=== PATIENT | female | born 1955 | race Caucasian/White ===

== ENCOUNTER 2018-07-11 12:42 | Inpatient (IN) | payer SELFPAY ==
[2018-07-11] MEDS ORDERED: HYDROMORPHONE HCL 0.5 MG/0.5 ML INJ ONE ×3 (13:25→15:31)
[2018-07-11] MEDS ORDERED: ONDANSETRON 4 MG/2 ML VIAL ONE ×2 (13:28→15:22)
[2018-07-11 13:50] LABS: Absolute Lymphocytes (CBC) 1.8 K/uL (0.7-4.9); Absolute Monocytes 0.6 K/uL (0.1-1.3); Absolute Neutrophil 4.6 K/uL (1.8-8.0); Basophils % 0.8 % (0-1.3); Eosinophils % 3.4 % (0-4.4); Hematocrit 42.6 % (36.0-45.0); Lymphocytes % 24.4 % (15.3-44.8); MCH 30.8 pg (27.0-35.0); MCV 87.7 fL (80-100); MPV 7.7 fL (7.6-11.3); Monocytes % 8.1 % (3.3-12.3); RBC Red Blood Cell Count 4.86 M/uL (3.86-4.86)
[2018-07-11 14:41] LABS: Potassium 3.9 mmol/L (3.5-5.1)
[2018-07-11] MEDS ORDERED: PROMETHAZINE 25 MG/ML VIAL ONE (15:35)
--- NOTE | 2018-07-11 16:00 | RAD REPORT ---
EXAM DESCRIPTION: CT - Ankle Right Wo Con - 07/11/2018 3:40 pm CLINICAL HISTORY: Fall, ankle pain, abnormal plain films COMPARISON: Right ankle July 11 TECHNIQUE: Axial 2 millimeter thick images of the right ankle obtained with sagittal and coronal ref ormatted images generated and reviewed. The CT scan was performed using dose optimization techniques as appropriate to a performed exam incl uding one or more of the following: Automated exposure control, adjustment of the mA and/or kV accord ing to patient size (this includes techniques or standardized protocols for targeted exams where dose is matched to indication/reason for exam) and use of iterative reconstruction technique. FINDINGS: There is a transverse fracture of the distal fibula with no significant distraction or ang ulation deformity. No pathologic component. Posterior malleolus of the tibia is intact. There is an a ccessory ossicle posterior to the talus. No gross fracture deformity of the medial malleolus. There a re 2 small 1-2 mm sized bone densities near the tip of the fibula that may be small bone avulsions. L igamentous or other soft tissue injury is certainly possible. Ankle mortise is normal. The soft tissu e swelling is present along the lateral and anterior aspect of the ankle joint. Plantar and Achilles spurs are present. No acute calcaneus finding. No air or foreign body in the soft tissues. The foot is flexed inward and rotated in this imaging plane. Foot is only partially imaged on this st udy. No gross fracture deformity of a tarsal bone. IMPRESSION: Transverse fracture of the distal fibula without distraction or angulation deformity. Punctate bone densities 1-2 mm in size inferior tip of the medial malleolus are potentially small bon e avulsions. No gross fracture deformity of the distal tibia.
--- NOTE | 2018-07-11 16:07 | EDPHYS ---
Physician Documentation [facility] Name: Ami Kelly Age: 63 yrs Sex: Female : 1955 Arrival Date: 07/11/2018 Time: 12:46 Bed 24 Private MD: ED Physician Chapo Blanco HPI: 07/11 13:25 This 63 yrs old Female presents to ER via EMS with complaints of Wrist Pain, Ankle cp Injury. 13:25 Details of fall: The patient fell from an upright position. cp 13:25 Onset: The symptoms/episode began/occurred just prior to arrival. Associated injuries: cp The patient sustained right wrist, decreased range of motion, painful injury, swelling, right ankle, decreased range of motion, painful injury, swelling, left knee, pain. Historical: - Allergies: 12:56 No Known Allergies; ss - PMHx: 16:24 GERD; sv - PSHx: 16:24 Tonsillectomy; sv - Immunization history:: Adult Immunizations up to date. - Social history:: Smoking status: Patient/guardian denies using tobacco. - Ebola Screening: : Patient denies exposure to infectious person Patient denies travel to an Ebola-affected area in the 21 days before illness onset. ROS: 13:30 Constitutional: Negative for body aches, chills, fever, poor PO intake. cp 13:30 Eyes: Negative for injury, pain, redness, and discharge. cp 13:30 ENT: Negative for drainage from ear(s), ear pain, sore throat, difficulty swallowing, difficulty handling secretions. 13:30 Cardiovascular: Negative for chest pain, edema, palpitations. 13:30 Respiratory: Negative for cough, shortness of breath, wheezing. 13:30 Abdomen/GI: Negative for abdominal pain, nausea, vomiting, and diarrhea. 13:30 MS/extremity: Positive for injury or acute deformity, decreased range of motion, pain, of the right ankle and right wrist, Negative for paresthesias. 13:30 Skin: Negative for cellulitis, rash. 13:30 Neuro: Negative for altered mental status, headache, loss of consciousness, weakness. 13:30 All other systems are negative. Exam: 13:38 Constitutional: The patient appears in no acute distress, alert, awake, cp non-diaphoretic, non-toxic, well developed, well nourished, obese. 13:38 Head/Face: Normocephalic, atraumatic. cp 13:38 Eyes: Periorbital structures: appear normal, Pupils: equal, round, and reactive to light and accomodation, Extraocular movements: intact throughout, Conjunctiva: normal, no exudate, no injection, Sclera: no appreciated abnormality, Lids and lashes: appear normal, bilaterally. 13:38 ENT: External ear(s): are unremarkable, Ear canal(s): are normal, clear, TM's: bulging, is not appreciated, bilaterally, dullness, bilaterally, erythema, is not appreciated, bilaterally, Nose: is normal, Mouth: Lips: moist, Oral mucosa: pink and intact, moist, Posterior pharynx: is normal, airway is patent, no erythema, no exudate. 13:38 Neck: C-spine: vertebral tenderness, is not appreciated, crepitus, is not appreciated, ROM/movement: is normal, is supple, without pain, no range of motions limitations, no nuchal rigidity. 13:40 Chest/axilla: Inspection: normal, Palpation: is normal, no crepitus, no tenderness. cp 13:40 Cardiovascular: Rate: normal, Rhythm: regular, Pulses: Pulses are 2+ in right radial cp artery, right dorsalis pedis artery, left radial artery and left dorsalis pedis artery. Edema: is not appreciated, JVD: is not appreciated. 13:40 Respiratory: the patient does not display signs of respiratory distress, Respirations: normal, no use of accessory muscles, no retractions, no splinting, no tachypnea, labored breathing, is not present, Breath sounds: are clear throughout, no decreased breath sounds, no stridor, no wheezing. 13:40 Abdomen/GI: Inspection: obese Bowel sounds: active, all quadrants, Palpation: abdomen is soft and non-tender, in all quadrants. 13:40 Back: vertebral tenderness, is not appreciated. 13:40 Musculoskeletal/extremity: Extremities: grossly normal except: noted in the right wrist and right ankle: decreased ROM, deformity, pain, swelling, tenderness, noted in the left knee: pain, no evidence of decreased ROM, deformity. 13:40 Skin: cellulitis, is not appreciated, no rash present. 13:40 Neuro: Orientation: to person, place \T\ time. Mentation: is normal, Sensation: is normal. Vital Signs: 12:56 BP 97 / 50; Pulse 82; Resp 18; Pulse Ox 97% on R/A; Weight 97.98 kg; Height 5 ft. 2 in. ss (157.48 cm); Pain 10/10; 13:12 BP 122 / 68; Pulse 74; Resp 20; Pulse Ox 97% ; sv 14:00 BP 133 / 101; Pulse 75; Resp 18; Pulse Ox 96% on 2 lpm NC; sv 15:00 BP 135 / 59; Pulse 75; Resp 20; Pulse Ox 96% on 2 lpm NC; sv 16:32 BP 100 / 82; Pulse 79; Resp 18; Pulse Ox 97% on 2 lpm NC; sv 16:57 BP 112 / 69; Pulse 77; Resp 18; Pulse Ox 99% on 2 lpm NC; sv 12:56 Body Mass Index 39.51 (97.98 kg, 157.48 cm) Procedures: 17:25 Splinting: Splint applied to right wrist using Orthoglass splint, sugar tong type. cp applied by tech. Examined by me, post splint application: neurovascular intact, Patient tolerated well. 17:25 Splinting: Splint applied to right ankle using Orthoglass splint, posterior lower leg cp and stirrup type. applied by tech. Examined by me, post splint application: neurovascular intact, Patient tolerated well. MDM: 12:53 Patient medically screened. cp 15:23 Physician consultation: Rodriguez Sam MD was called at 15:23, was contacted at 15:23, cp regarding consult, patient's condition, would like admission per Dr. Julio Mcmullen MD. 15:25 Data reviewed: vital signs, nurses notes, lab test result(s), radiologic studies, plain cp films, and as a result, I will admit patient. 15:25 Test interpretation: by ED physician or midlevel provider: plain radiologic studies. cp Counseling: I had a detailed discussion with the patient and/or guardian regarding: the historical points, exam findings, and any diagnostic results supporting the discharge/admit diagnosis, lab results, radiology results. Response to treatment: the patient's symptoms have mildly improved after treatment. 07/11 13:21 Order name: Basic Metabolic Panel; Complete Time: 15:15 cp 07/11 15:15 Interpretation: Normal except: CL 108; GLUC 115; GFR 56. cp 07/11 13:21 Order name: CBC with Diff; Complete Time: 14:24 cp 07/11 14:24 Interpretation: Reviewed. cp 07/11 13:21 Order name: Type And Screen cp 07/11 13:21 Order name: PT-INR cp 07/11 13:21 Order name: Ptt, Activated cp 07/11 13:21 Order name: XRAY Ankle RIGHT 3 view; Complete Time: 17:25 cp 07/11 14:10 Order name: Wrist Right 2 View; Complete Time: 17:25 EDMS 07/11 14:10 Order name: Knee Left 2 View; Complete Time: 17:25 EDMS 07/11 15:03 Order name: Ankle Right Wo Con; Complete Time: 17:25 EDMS 07/11 17:26 Interpretation: Report reviewed. cp 07/11 13:21 Order name: IV; Complete Time: 13:32 cp 07/11 13:21 Order name: Labs collected and sent; Complete Time: 13:32 cp 07/11 14:24 Order name: Splint: right sugar tong; Complete Time: 16:22 cp 07/11 14:52 Order name: EKG; Complete Time: 14:53 cp 07/11 14:52 Order name: EKG - Nurse/Tech; Complete Time: 17:28 cp 07/11 16:06 Order name: CONS Physician Consult; Complete Time: 17:28 EDMS Administered Medications: 13:27 Drug: Zofran 4 mg Route: IVP; Site: left forearm; sv 13:45 Follow up: Response: No adverse reaction sv 13:29 Drug: Dilaudid 0.5 mg Route: IVP; Site: left forearm; sv 13:45 Follow up: Response: No adverse reaction sv 14:14 Drug: Dilaudid 0.5 mg Route: IVP; Site: left forearm; sv 14:30 Follow up: Response: No adverse reaction sv 15:16 Drug: Zofran 4 mg Route: IVP; Site: left forearm; sv 15:31 Follow up: Response: No adverse reaction; No change in condition sv 15:17 CANCELLED (Duplicate Order): Zofran 4 mg PO once sv 15:30 Drug: Phenergan 12.5 mg Route: IVP; Site: left forearm; sv 16:50 Drug: Dilaudid 0.5 mg Route: IVP; Site: left forearm; sv 17:25 Follow up: Response: No adverse reaction sv 17:28 Not Given (not needed): NS 0.9% 1000 ml IV at 100 ml/hr continuous sv 17:29 Not Given (not needed): NS 0.9% 500 ml IV at bolus once sv 17:29 Not Given (not needed): NS 0.9% 500 ml IV at bolus once sv Disposition: 07/11/18 16:00 Hospitalization ordered by Julio Mcmullen for Observation. Preliminary diagnosis are Intractable Pain, Right distal radius fracture, Right ankle fracture. - Bed requested for Telemetry/MedSurg (observation). - Status is Observation. sv - Condition is Stable. - Problem is new. - Symptoms have improved. UTI on Admission? No Addendum: 07/14/2018 08:12 Co-signature as Attending Physician, Chapo Blanco MD I agree with the assessment and c san plan of care. Signatures: Dispatcher [employer] EDWA Allison Alvarez RN RN sv Woody, Diana, RN RN dw Anderson, Corey, MD MD cha Smirch, Shelby, RN RN ss Page, Corey, PA PA cp Corrections: (The following items were deleted from the chart) 07/11 14:10 13:21 Wrist Right 3 View+RAD.RAD.BRZ ordered. EDWA EDMS 14:10 13:21 Knee Left 3 View+RAD.RAD.BRZ ordered. EDWA EDMS 14:44 13:21 Creatinine for Radiology+C.LAB.BRZ ordered. EDWA EDMS 15:17 14:56 Zofran 4 mg PO once ordered. cp sv 16:31 16:00 Hospitalization Ordered by Julio Mcmullen MD for Observation. Preliminary diagnosis dw is Intractable Pain; Right distal radius fracture; Right ankle fracture. Bed requested for Telemetry/MedSurg (observation). Status is Observation. Condition is Stable. Problem is new. Symptoms have improved. UTI on Admission? No. cp 17:37 16:31 07/11/2018 16:00 Hospitalization Ordered by Julio Mcmullen MD for Observation. sv Preliminary diagnosis is Intractable Pain; Right distal radius fracture; Right ankle fracture. Bed requested for Telemetry/MedSurg (observation). Status is Observation. Condition is Stable. Problem is new. Symptoms have improved. UTI on Admission? No. dw
--- NOTE | 2018-07-11 16:07 | ER ---
Nurse's Notes [facility] Name: Ami Kelly Age: 63 yrs Sex: Female : 1955 Arrival Date: 07/11/2018 Time: 12:46 Bed 24 Private MD: Diagnosis: Intractable Pain;Right distal radius fracture;Right ankle fracture Presentation: 07/11 12:52 Presenting complaint: EMS states: R wrist, R ankle and L knee pain that [place]. Denies LOC and or neck pain. Transition of care: patient was not received from another setting of care. Onset of symptoms was July 11, 2018. Risk Assessment: Do you want to hurt yourself or someone else? Patient reports no desire to harm self or others. Initial Sepsis Screen: Does the patient meet any 2 criteria? No. Patient's initial sepsis screen is negative. Does the patient have a suspected source of infection? No. Patient's initial sepsis screen is negative. Care prior to arrival: None. 12:52 Method Of Arrival: EMS: [facility] ss 12:52 Acuity: FELICIA 3 ss Historical: - Allergies: 12:56 No Known Allergies; ss - PMHx: 16:24 GERD; sv - PSHx: 16:24 Tonsillectomy; sv - Immunization history:: Adult Immunizations up to date. - Social history:: Smoking status: Patient/guardian denies using tobacco. - Ebola Screening: : Patient denies exposure to infectious person Patient denies travel to an Ebola-affected area in the 21 days before illness onset. Screenin:12 Abuse screen: Denies threats or abuse. Denies injuries from another. Nutritional sv screening: No deficits noted. Tuberculosis screening: No symptoms or risk factors identified. Fall Risk No fall in past 12 months (0 pts). No secondary diagnosis (0 pts). No IV (0 pts). Ambulatory Aid- None/Bed Rest/Nurse Assist (0 pts). Gait- Impaired (20 pts.). Mental Status- Oriented to own ability (0 pts). Total Malone Fall Scale indicates No Risk (0-24 pts). Assessment: 13:00 General: Appears distressed, uncomfortable, obese, well developed, Behavior is sv cooperative, anxious, crying. Pain: Complains of pain in right arm and right leg Pain currently is 10 out of 10 on a pain scale. Pain began 1 hour ago. Is continuous, Aggravated by increased activity, repositioning. Pain: Noted to be crying, grimacing, moaning, resistant to movement. Neuro: Level of Consciousness is awake, alert, obeys commands, Oriented to person, place, time, situation, in right leg(s) decreased ROM. Cardiovascular: Capillary refill < 3 seconds is brisk in right toes Patient's skin is warm and dry. Respiratory: Respiratory effort is even, unlabored, Respiratory pattern is regular, symmetrical. Derm: Skin is normal. Musculoskeletal: Range of motion: limited in right wrist and right ankle. 13:11 Reassessment: Informed Chapo CARR that pt and spouse are requesting pain medication. sv 13:27 Reassessment: Patient appears in no apparent distress at this time. No changes from sv previously documented assessment. Patient and/or family updated on plan of care and expected duration. Pain level reassessed. Patient is alert, oriented x 3, equal unlabored respirations, skin warm/dry/pink. 14:12 Reassessment: Patient appears in no apparent distress at this time. No changes from sv previously documented assessment. Patient and/or family updated on plan of care and expected duration. Pain level reassessed. Patient is alert, oriented x 3, equal unlabored respirations, skin warm/dry/pink. Patient states symptoms have not improved. 15:10 Reassessment: Spouse denied having recollect of labs done, stated to medical laboratory manager he sv doesn't think it was necessary. 15:14 Reassessment: Patient appears in no apparent distress at this time. No changes from sv previously documented assessment. Patient and/or family updated on plan of care and expected duration. Pain level reassessed. Patient is alert, oriented x 3, equal unlabored respirations, skin warm/dry/pink. Patient states symptoms have not improved. GI: Reports nausea. 15:28 Reassessment: Patient appears in no apparent distress at this time. No changes from sv previously documented assessment. Patient states symptoms have not improved. GI: Reports nausea. 16:32 Reassessment: Patient appears in no apparent distress at this time. Patient and/or sv family updated on plan of care and expected duration. Pain level reassessed. Patient is alert, oriented x 3, equal unlabored respirations, skin warm/dry/pink. 16:58 Reassessment: Patient appears in no apparent distress at this time. Patient and/or sv family updated on plan of care and expected duration. Pain level reassessed. Patient is alert, oriented x 3, equal unlabored respirations, skin warm/dry/pink. Cardiovascular: Capillary refill < 3 seconds is brisk in right toes Patient's skin is warm and dry. 17:00 Reassessment: Kay Rn to call back for report. sv 17:35 Reassessment: Patient appears in no apparent distress at this time. Patient and/or sv family updated on plan of care and expected duration. Pain level reassessed. Patient is alert, oriented x 3, equal unlabored respirations, skin warm/dry/pink. Patient states symptoms have improved. Vital Signs: 12:56 BP 97 / 50; Pulse 82; Resp 18; Pulse Ox 97% on R/A; Weight 97.98 kg; Height 5 ft. 2 in. ss (157.48 cm); Pain 10/10; 13:12 BP 122 / 68; Pulse 74; Resp 20; Pulse Ox 97% ; sv 14:00 BP 133 / 101; Pulse 75; Resp 18; Pulse Ox 96% on 2 lpm NC; sv 15:00 BP 135 / 59; Pulse 75; Resp 20; Pulse Ox 96% on 2 lpm NC; sv 16:32 BP 100 / 82; Pulse 79; Resp 18; Pulse Ox 97% on 2 lpm NC; sv 16:57 BP 112 / 69; Pulse 77; Resp 18; Pulse Ox 99% on 2 lpm NC; sv 12:56 Body Mass Index 39.51 (97.98 kg, 157.48 cm) ED Course: 12:46 Patient arrived in ED. ss 12:52 Allison Alvarez, DIANN is Primary Nurse. sv 12:53 Chapo Wilkerson PA is PHCP. cp 12:53 Chapo Blanco MD is Attending Physician. cp 12:56 Triage completed. ss 12:56 Arm band placed on right wrist. ss 13:00 Patient has correct armband on for positive identification. Placed in gown. Bed in low sv position. Side rails up X2. Adult w/ patient. Pulse ox on. NIBP on. Door closed. Warm blanket given. Head of bed elevated. Wet clothes taken off of the pt and warm blankets placed on.. 13:25 Initial lab(s) drawn, by me, sent to lab. Inserted saline lock: 20 gauge in left sv forearm, using aseptic technique. Blood collected. Flushed left forearm with 5 ml normal saline. 14:10 X-ray completed. Portable x-ray completed in exam room. Patient tolerated procedure mh1 poorly. Note: due to patients pain level, best images available as 2 views. 14:12 XRAY Ankle RIGHT 3 view In Process Unspecified. EDMS 14:12 Wrist Right 2 View In Process Unspecified. EDMS 14:12 Knee Left 2 View In Process Unspecified. EDMS 15:20 Orthoglass splint: Sugar tong splint applied on right arm. Sling applied to right arm. sv 15:40 Ankle Right Wo Con In Process Unspecified. EDMS 15:58 Julio Mcmullen MD is Hospitalizing Provider. cp 16:57 Orthoglass splint: Posterior short lleg splint applied on right leg. stirrup splint sv applied on right leg. 16:59 No provider procedures requiring assistance completed. Patient admitted, IV remains in sv place. intact. Administered Medications: 13:27 Drug: Zofran 4 mg Route: IVP; Site: left forearm; sv 13:45 Follow up: Response: No adverse reaction sv 13:29 Drug: Dilaudid 0.5 mg Route: IVP; Site: left forearm; sv 13:45 Follow up: Response: No adverse reaction sv 14:14 Drug: Dilaudid 0.5 mg Route: IVP; Site: left forearm; sv 14:30 Follow up: Response: No adverse reaction sv 15:16 Drug: Zofran 4 mg Route: IVP; Site: left forearm; sv 15:31 Follow up: Response: No adverse reaction; No change in condition sv 15:17 CANCELLED (Duplicate Order): Zofran 4 mg PO once sv 15:30 Drug: Phenergan 12.5 mg Route: IVP; Site: left forearm; sv 16:50 Drug: Dilaudid 0.5 mg Route: IVP; Site: left forearm; sv 17:25 Follow up: Response: No adverse reaction sv 17:28 Not Given (not needed): NS 0.9% 1000 ml IV at 100 ml/hr continuous sv 17:29 Not Given (not needed): NS 0.9% 500 ml IV at bolus once sv 17:29 Not Given (not needed): NS 0.9% 500 ml IV at bolus once sv Outcome: 16:00 Decision to Hospitalize by Provider. cp 17:29 Admitted to Med/surg accompanied by tech, family with patient, via stretcher, room 212, sv with oxygen, with chart, Report called to Kay TIDWELL 17:29 Condition: stable 17:29 Instructed on the need for admit. 17:37 Patient left the ED. sv Signatures: Dispatcher [employer] EDMS Allison Alvarez RN RN Jo Velasco 1 Mily Meng RN RN ss Chapo Wilkerson, LILLY PA cp Corrections: (The following items were deleted from the chart) 16:57 16:32 BP 100 / 82; Pulse 79bpm; Resp 18bpm; Pulse Ox 97% 2 lpm Nasal Cannula; sv sv 16:58 13:00 Cardiovascular: Capillary refill < 3 seconds is brisk in left toes Patient's skin sv is warm and dry. sv
--- NOTE | 2018-07-11 16:16 | RAD REPORT ---
EXAM DESCRIPTION: RAD - Wrist Right 2 View - 07/11/2018 2:12 pm CLINICAL HISTORY: Fall, wrist pain COMPARISON: None. TECHNIQUE: AP and oblique view of the wrist obtained. FINDINGS: Positioning was not optimal. There is a comminuted fracture involving the distal radius fr om distal shaft to the articular surface. Approximately 2 mm of distraction seen along the main obliq ue fracture plane from diaphyseal metaphyseal junction to the articular surface near the ulna. No uln a fracture confirmed. Dorsal or ventral angulation component cannot be assessed from these views. No acute carpal bone finding. IMPRESSION: Limited imaging showing comminuted distal radius fracture. Distraction is minimal. Dorsa l or ventral angulation components cannot be assessed.
--- NOTE | 2018-07-11 16:18 | RAD REPORT ---
EXAM DESCRIPTION: RAD - Ankle Right 3 View - 07/11/2018 2:12 pm CLINICAL HISTORY: Fall, ankle pain COMPARISON: None. FINDINGS: Transverse fracture of the distal fibula is present near the tibiotalar joint line. Minima l 1- 2 mm of distraction evident. No angulation deformity. Ankle mortise is normal. No distal tibia f racture identifiable. Lateral soft tissue swelling is present. Tarsal bone assessment is limited. No air or foreign body in the soft tissues. IMPRESSION: Transverse fracture of the distal fibula with minimal distraction and no angulation.
--- NOTE | 2018-07-11 17:15 | RAD REPORT ---
EXAM DESCRIPTION: RAD - Knee Left 2 View - 07/11/2018 2:12 pm CLINICAL HISTORY: Fall, knee pain COMPARISON: None. FINDINGS: Portable AP and cross-table lateral views obtained. Lateral view was obtained in approxima tely 120 degrees flexion. No fracture, dislocation or periosteal reaction.No joint effusion seen. No joint space narrowing. No soft tissue abnormality. IMPRESSION: No fracture or acute bone or joint finding identifiable.
[2018-07-11] MEDS ORDERED: HYDROMORPHONE HCL 1 MG/ML INJ IV PRN (17:31)
[2018-07-11] MEDS ORDERED: ACETAMINOPHEN 500 MG TAB PO PRN (17:31)
[2018-07-11] MEDS: ENOXAPARIN 40 MG/0.4 ML SQ SCH (18:41)
[2018-07-11] MEDS: HYDROCODONE/APAP 10/325 TAB PO PRN (18:41)
[2018-07-11] MEDS: ONDANSETRON 4 MG/2 ML VIAL IV PRN (20:04)
[2018-07-11] MEDS ORDERED: CYCLOBENZAPRINE 10 MG TAB PO PRN (21:03)
--- NOTE | 2018-07-11 21:52 | P.HP ---
Certification for Inpatient Patient admitted to: Observation With expected LOS: <2 Midnights Practitioner: I am a practitioner with admitting privileges, knowledge of patient current condition, hospital course, and medical plan of care. Services: Services provided to patient in accordance with Admission requirements found in Title 42 Section 412.3 of the Code of Federal Regulations Patient History Date of Service: 07/11/18 Reason for admission: Mechanical fall History of Present Illness: This is a 63 yr old female with a hx of GERD [place] for right wrist, knee and ankle pain. States she was on vacation with her family at the [place], she was running with her grandkids where she had a fall and tried to break her fall with her right hand. She continued to have pain and came into the ER. In the ER, she was found to have a fracture of the distal fibula and distal radial fracture. At the time of my exam, she was AAOx3, in mod distress due to pain. Allergies No Known Allergies Allergy (Verified 07/11/18 17:23) Home Medications: NK [No Home Meds] 07/11/18 - Past Medical/Surgical History -: colitis -: fracture both ankles no surgery 2006 -: tonsillectomy - Social History Smoking Status: Never smoker Alcohol use: No CD- Drugs: No Caffeine use: Yes Place of Residence: Home Review of Systems Unremarkable Physical Examination - Vital Signs Temperature: 97.0 F Blood Pressure: 125/58 Pulse: 73 Respirations: 16 Pulse Ox (%): 98 - Physical Exam General: Alert, Oriented x3, Moderate distress HEENT: Atraumatic, PERRLA, Mucous membr. moist/pink, EOMI, Sclerae nonicteric Neck: Supple, 2+ carotid pulse no bruit, No LAD, Without JVD or thyroid abnormality Respiratory: Clear to auscultation bilaterally, Normal air movement Cardiovascular: Regular rate/rhythm, Normal S1 S2 Gastrointestinal: Normal bowel sounds, No tenderness Musculoskeletal: No tenderness, Other (Sling inn place on left upper extremity) Integumentary: No rashes Neurological: Normal gait, Normal speech, Normal strength at 5/5 x4 extr, Normal tone, Normal affect Lymphatics: No axilla or inguinal lymphadenopathy - Studies Laboratory Data (last 24 hrs) 07/11/18 14:10: Creatinine Cancelled 07/11/18 14:10: Sodium 143, Potassium 3.9, BUN 13, Creatinine 1.00, Glucose 115 H 07/11/18 13:36: WBC 7.3, Hgb 15.0, Hct 42.6, Plt Count 253 Assessment and Plan - Plan Right ankle transverse fracture Right wrist radial fracture GERD Orthopedic surgery consult, Dr. Sam IV pain control Zofran for nausea, as needed DVT prophylaxis: Lovenox GI Prophylaxis: Protonix Diet: Regular Dispo: Pending ortho surgery recommendations. - Advance Directives Does patient have a Living Will: No Does patient have a Durable POA for Healthcare: No
[2018-07-12] MEDS: HYDROCODONE/APAP 10/325 TAB PO PRN ×3 (00:06→17:16)
[2018-07-12] MEDS: NA CHLORIDE 0.9% 1,000 ML IV SCH ×3 (00:17→14:50)
[2018-07-12] MEDS ORDERED: PIPER/TAZO/NS 3.375gm 0 GM/0 ML BAG ONE (05:37)
[2018-07-12 05:42] LABS: Absolute Lymphocytes (CBC) 1.4 K/uL (0.7-4.9); Absolute Monocytes 0.5 K/uL (0.1-1.3); Absolute Neutrophil 5.8 K/uL (1.8-8.0); Basophils % 0.2 % (0-1.3); Eosinophils % 0.1 % (0-4.4); Hematocrit 42.6 % (36.0-45.0); Lymphocytes % 18.3 % (15.3-44.8); MCH 30.4 pg (27.0-35.0); MCV 88.6 fL (80-100); MPV 7.6 fL (7.6-11.3); Monocytes % 5.9 % (3.3-12.3); RBC Red Blood Cell Count 4.81 M/uL (3.86-4.86)
[2018-07-12 05:50] LABS: Albumin 3.5 g/dL (3.4-5.0); Bilirubin Total 0.4 mg/dL (0.2-1.0); Potassium 4.1 mmol/L (3.5-5.1); Protein, Total 6.5 g/dL (6.4-8.2)
[2018-07-12 06:07] LABS: Protime INR 1.06
[2018-07-12] MEDS: PANTOPRAZOLE 40MG TABLET PO SCH (06:11)
--- NOTE | 2018-07-12 07:00 | EKG ---
Test Date: 2018-07-11 Test Time: 16:34:41 Street Cleaner: TM MEASUREMENT RESULTS: Intervals: Rate: 70 MN: 156 QRSD: 90 QT: 446 QTc: 481 [place]: P: 59 MN: 156 QRS: 0 T: 38 INTERPRETIVE STATEMENTS: Normal sinus rhythm Normal ECG No previous ECG available for comparison Electronically Signed On 07-12-18 06:59:17 [employer] REPAIRER by Xavi More
[2018-07-12] MEDS ORDERED: KETOROLAC 30 MG/ML INJ IV ONE (07:57)
[2018-07-12] MEDS: ONDANSETRON 4 MG/2 ML VIAL IV PRN (09:52)
[2018-07-12] MEDS: FENTANYL CITR 100 MCG/2 ML IV PRN ×2 (11:28→21:13)
--- NOTE | 2018-07-12 12:15 | RAD REPORT ---
EXAM DESCRIPTION: RAD - Elbow Right 2 View - 07/12/2018 10:59 am CLINICAL HISTORY: Elbow pain, recent splinting for radius fracture COMPARISON: None. FINDINGS: Lateral and AP views were obtained. Due to patient pain and splint material, the AP projec tion is not optimal. No fracture or dislocation is identifiable at the elbow joint. No suspicion for elevated posterior fa t pad. IMPRESSION: Negative limited right elbow examination.
--- NOTE | 2018-07-12 13:11 | P.PN ---
Subjective Date of Service: 07/12/18 Chief Complaint: Mechanical fall Patient seen and examined at bedside. , daughter and son-in-law at bedside. Chart reviewed and Case discussed with nursing staff and Dr. Sam. Patient reports arm still hurting, right elbow pain. Ankle/lower extremity pain has almost resolved. She received 1 dose of Toradol this morning, 1 dose of Dilaudid. Dilaudid makes her feel dizzy and queasy. No other acute events overnight. Hemodynamically stable Review of Systems As noted Physical Examination - Vital Signs Temperature: 97.3 F Blood Pressure: 126/56 Pulse: 71 Respirations: 16 Pulse Ox (%): 98 - Physical Exam General: Alert, Mild distress HEENT: Atraumatic, PERRLA, EOMI Neck: Supple, JVD not distended Respiratory: Clear to auscultation bilaterally, Normal air movement Cardiovascular: Regular rate/rhythm, Normal S1 S2 Gastrointestinal: Normal bowel sounds, No tenderness Musculoskeletal: No tenderness Integumentary: No rashes Neurological: Normal speech, Normal tone, Normal affect - Studies Laboratory Data (last 24 hrs) 07/11/18 14:10: Creatinine Cancelled 07/11/18 14:10: Sodium 143, Potassium 3.9, BUN 13, Creatinine 1.00, Glucose 115 H 07/11/18 13:36: WBC 7.3, Hgb 15.0, Hct 42.6, Plt Count 253 Assessment And Plan - Plan Right ankle transverse fracture Right wrist radial fracture GERD Orthopedic surgery consult, Dr. Sam. Recommendations appreciated. No surgical intervention planned at this time. IV pain control Zofran for nausea, as needed DVT prophylaxis: Lovenox GI Prophylaxis: Protonix Diet: Regular Dispo: Pending symptomatic improvement. Likely discharge tomorrow on oral pain medications. Physician Review: Patient Assessed, Agree with Above Assessment and Plan Time Spent Managing PTS Care (In Minutes): 35
[2018-07-12] MEDS: ENOXAPARIN 40 MG/0.4 ML SQ SCH (17:49)
[2018-07-13] MEDS: HYDROCODONE/APAP 10/325 TAB PO PRN ×4 (00:14→19:30)
[2018-07-13] MEDS: NA CHLORIDE 0.9% 1,000 ML IV SCH (00:18)
[2018-07-13 05:30] LABS: Absolute Lymphocytes (CBC) 2.3 K/uL (0.7-4.9); Absolute Monocytes 0.5 K/uL (0.1-1.3); Absolute Neutrophil 2.9 K/uL (1.8-8.0); Basophils % 0.7 % (0-1.3); Eosinophils % 4.8 % (0-4.4); Hematocrit 40.8 % (36.0-45.0); Lymphocytes % 38.6 % (15.3-44.8); MCH 30.2 pg (27.0-35.0); MCV 89.4 fL (80-100); MPV 7.2 fL (7.6-11.3); Monocytes % 7.9 % (3.3-12.3); RBC Red Blood Cell Count 4.56 M/uL (3.86-4.86)
[2018-07-13 05:45] LABS: Bilirubin Total 0.5 mg/dL (0.2-1.0); Potassium 3.9 mmol/L (3.5-5.1); Protein, Total 5.6 g/dL (6.4-8.2)
[2018-07-13] MEDS: PANTOPRAZOLE 40MG TABLET PO SCH (06:30)
[2018-07-13] MEDS ORDERED: POTASSIUM CL SA 10 MEQ TAB PO ONE (09:00)
[2018-07-13] MEDS: ONDANSETRON 4 MG/2 ML VIAL IV PRN (10:19)
--- NOTE | 2018-07-13 16:48 | P.PN ---
Subjective Date of Service: 07/13/18 Chief Complaint: Mechanical fall Subjective: No new changes, No C/O voiced, Improving Patient seen and examined at bedside. at bedside. Chart reviewed and Case discussed with nursing staff and Dr. Sam. Patient reports arm still hurting, right elbow pain. Ankle/lower extremity pain has almost resolved. She does not want IV pain medications as this makes her feel queasy and makes her feel bad Review of Systems As noted Physical Examination - Vital Signs Temperature: 97.4 F Blood Pressure: 121/58 Pulse: 70 Respirations: 16 Pulse Ox (%): 95 - Physical Exam General: Alert, In no apparent distress, Oriented x3 HEENT: Atraumatic, PERRLA, EOMI Neck: Supple, JVD not distended Respiratory: Clear to auscultation bilaterally, Normal air movement Cardiovascular: Regular rate/rhythm, Normal S1 S2 Gastrointestinal: Normal bowel sounds, No tenderness Musculoskeletal: Tenderness Integumentary: No rashes Neurological: Normal speech, Normal tone, Normal affect - Studies Medications List Reviewed: Yes Assessment And Plan - Plan Right ankle transverse fracture Right wrist radial fracture GERD Orthopedic surgery consult, Dr. Sam. Recommendations appreciated. No surgical intervention planned at this time. IV pain control with oral pain medications. Zofran for nausea, as needed patient services specialist consult placed. needs help with requiring wheelchair for trip back to [place]. All questions answered DVT prophylaxis: Lovenox GI Prophylaxis: Protonix Diet: Regular Dispo: Pending symptomatic improvement. Likely discharge tomorrow on oral pain medications. Physician Review: Patient Assessed, Agree with Above Assessment and Plan Time Spent Managing PTS Care (In Minutes): 55
[2018-07-13] MEDS: ENOXAPARIN 40 MG/0.4 ML SQ SCH (17:30)
[2018-07-14] MEDS: HYDROCODONE/APAP 10/325 TAB PO PRN ×2 (02:10→08:21)
[2018-07-14 05:57] LABS: Absolute Lymphocytes (CBC) 1.8 K/uL (0.7-4.9); Absolute Monocytes 0.5 K/uL (0.1-1.3); Eosinophils % 6.3 % (0-4.4); Hematocrit 40.3 % (36.0-45.0); Lymphocytes % 31.9 % (15.3-44.8); MCH 30.3 pg (27.0-35.0); MCV 89.1 fL (80-100); MPV 7.1 fL (7.6-11.3); Monocytes % 8.9 % (3.3-12.3); RBC Red Blood Cell Count 4.53 M/uL (3.86-4.86)
[2018-07-14 06:17] LABS: Bilirubin Total 0.3 mg/dL (0.2-1.0); Potassium 3.8 mmol/L (3.5-5.1); Protein, Total 5.6 g/dL (6.4-8.2)
[2018-07-14] MEDS: PANTOPRAZOLE 40MG TABLET PO SCH (07:10)
--- NOTE | 2018-07-14 08:27 | CON ---
Date of Consultation: 07/12/2018 Reason For Consultation: Right wrist and right ankle pain. History Of Present Illness: Ms. Kelly is a 63-year-old female, who presented to the ER with a fall onto the right side. She [place] the beach and [place], subsequent pain to her right ankle and right wrist. She was brought to the emergency room. An x-ray demonstrated a right distal radius fracture and right distal fibula fracture. She was placed in the splints and admitted to the floor for observation. Physical therapy consult and pain control. She reports pain in her right wrist and forearm as well as pain in her right ankle at this time. She denies any other musculoskeletal complaints at this time. She is from dialysis and will be returning to dialysis on Saturday. Review of Systems: As above, otherwise negative. Past Medical History: Includes GERD. Past Surgical History: Includes tonsillectomy. Medications: None. Allergies: NONE. Social History: Denies tobacco or alcohol use. The patient is on dialysis. Physical Examination: General: No apparent distress. HEENT: Normocephalic, atraumatic. Neck: Supple. Cardiovascular: Brisk cap refill to all digits. Chest: Nonlabored breathing. Abdomen: Nondistended. Psychiatric: Response to exam. Musculoskeletal: Left upper extremity: functional ROM without pain; no gross deformities, no obvious disolocations; Left lower extremity:no gross deformities. No obvious dislocations. No tenderness to palpation of the left knee. No extension noted. Right lower extremity: short leg splint in place; moves toes grossly; BCR in all digits. Right upper extremity, she is in a sugar -tong splint. Her fingers are exposed and there is brisk capillary refill in all digits She moves her digits grossly. Gross sensation intact distally. No tenderness to palpation over the proximal humerus X-rays of the right wrist demonstrate a metadiaphyseal fracture of the distal radius with the acceptable alignment, does appear comminuted. X-rays of the right ankle demonstrate a minimally displaced distal fibular fracture at the level of the mortise. Assessment And Plan: Ms. Kelly is a 63-year-old female with a right distal fibula as well as a right distal radius fracture. I discussed with the patient and the family for diagnosis as well as treatment options. Given the minimal displacement of the fractures, I recommend nonoperative treatment at this time. However, did tell them that they would need to followup with an orthopedist in [place] within the next week for followup x-rays. If there is any further displacement, she may require surgery. Physical Therapy will be consulted to aid the patient with mobilization and the Hospitalist Service will continue to monitor the patient in aid with pain control. She may be discharged and follow up in my clinic as needed. SARAVANAN/AMAN Voice ID: [id number] Report ID: [id number] CARON
[2018-07-14] MEDS ORDERED: POTASSIUM CL SA 10 MEQ TAB PO ONE (09:00)
[2018-07-14] MEDS: ONDANSETRON 4 MG/2 ML VIAL IV PRN ×2 (09:38→15:26)
[2018-07-14] MEDS: DOCUSATE NA 100 MG CAP PO SCH ×2 (11:32→20:53)
[2018-07-14] MEDS: HYDROCODONE/APAP 5/325 MG TAB PO PRN ×2 (14:42→20:54)
--- NOTE | 2018-07-14 17:53 | P.PN ---
Subjective Date of Service: 07/14/18 Chief Complaint: Mechanical fall Patient seen and examined at bedside. at bedside. Chart reviewed and Case discussed with nursing staff and Dr. Sam. Pain is improving, the pain medications were making her feel bad. She can't really describe how she is feeling but she states that she just does not feel right. Review of Systems As noted Physical Examination - Vital Signs Temperature: 97.8 F Blood Pressure: 124/59 Pulse: 68 Respirations: 18 Pulse Ox (%): 95 - Physical Exam General: Alert, In no apparent distress, Oriented x3 HEENT: Atraumatic, PERRLA, EOMI Neck: Supple, JVD not distended Respiratory: Clear to auscultation bilaterally, Normal air movement Cardiovascular: Regular rate/rhythm, Normal S1 S2 Gastrointestinal: Normal bowel sounds, No tenderness Musculoskeletal: Tenderness Neurological: Normal speech, Normal tone, Normal affect Lymphatics: No axilla or inguinal lymphadenopathy - Studies Medications List Reviewed: Yes Assessment And Plan - Plan Right ankle transverse fracture Right wrist radial fracture GERD Orthopedic surgery consult, Dr. Sam. Recommendations appreciated. No surgical intervention planned at this time. IV pain control with oral pain medications. Hold IV pain medication Zofran for nausea, as needed inpatient services director consult placed. All questions answered DVT prophylaxis: Lovenox GI Prophylaxis: Protonix Diet: Regular Dispo: Pending symptomatic improvement. inpatient services director involved, the patient is pending placement at a alf facility in [place], likely tomorrow. Once she has been accepted, he has been was planning on driving patient to the facility. Physician Review: Patient Assessed, Agree with Above Assessment and Plan
[2018-07-14] MEDS: ENOXAPARIN 40 MG/0.4 ML SQ SCH (17:57)
--- NOTE | 2018-07-14 20:13 | P.PN ---
Subjective Date of Service: 07/14/18 Chief Complaint: right wrist and right ankle fracture Pain is improving. Reports minimal pain with the right ankle. Continued pain with right wrist. Physical Examination - Vital Signs Temperature: 97.8 F Blood Pressure: 124/59 Pulse: 68 Respirations: 18 Pulse Ox (%): 95 - Physical Exam General: Alert, In no apparent distress Musculoskeletal: Other (RUE: sugartong splint in place; BCR all digits; RLE: in short leg splint; BCR in all digits) - Studies Medications List Reviewed: Yes Assessment And Plan - Plan Ami is a 63 yo female with a right distal radius fracture and right distal fibula fracture -will continue with nonoperative treatment at this time -discussed with patient and family need to followup with local orthopaedic surgeon once she returns home for followup xrays and transition to cast vs possibility of surgery with further displacement of her fractures -will be NWB of her RUE and RLE at this time -continue to mobilize with PT Physician Review: Patient Assessed, Agree with Above Assessment and Plan
[2018-07-15] MEDS: HYDROCODONE/APAP 5/325 MG TAB PO PRN ×2 (03:48→09:26)
[2018-07-15] MEDS: PANTOPRAZOLE 40MG TABLET PO SCH (06:05)
[2018-07-15 07:18] LABS: Magnesium 2.3 mg/dL (1.8-2.4); Phosphorus 3.8 mg/dL (2.5-4.9)
[2018-07-15] MEDS: DOCUSATE NA 100 MG CAP PO SCH (09:00)
[2018-07-15] MEDS: ONDANSETRON 4 MG/2 ML VIAL IV PRN (09:37)
[2018-07-15] MEDS: ENOXAPARIN 40 MG/0.4 ML SQ SCH (13:19)
--- NOTE | 2018-07-16 15:10 | DS ---
Date of Discharge: 07/15/2018 Admitting Diagnoses: 1.Right ankle transverse fracture. 2.Right wrist radial fracture. 3.Gastroesophageal reflux disease. 4.Morbid obesity, body mass index of 41. Discharge Diagnoses: 1.Right distal radius fracture, closed. 2.Comminuted distal fracture, initial encounter. 3.Right distal fibula fracture, initial encounter, closed transverse, nonoperative. 4.Morbid obesity, body mass index of 41.6. 5.Gastroesophageal reflux disease. Hospital Course: The patient is a 63-year-old morbidly obese female with GERD, who [place] and had pain in her right wrist, knee, and ankle. She was evaluated in the ER, fou nd to have a fracture of the distal fibula and distal radius on the right. The patient was evaluated by Orthopedics, which has not recommended any surgical intervention. The patient was immobilized in regard to her right upper extremity and right lower extremity. Pain control was initiated. The pat ient was then referred to [facility] facility. As the patient will need physical therapy, she w ill be nonweightbearing of her right upper extremity and right lower extremity at this time. She brian l need to follow up with local orthopedic surgeon in [place] for followup x-rays and transition to yael t currently in a sugar-tong splint. She may need surgery if there is any displacement of her fractur es. The patient was then referred to SNF in [place] and was accepted, and she was discharged in a stable condition. The patient was working well with physical therapy, but did have significant amoun t of pain. Condition: Stable. Activity: Nonweightbearing on the right upper and lower extremity. Diet: Calorie-restricted; heart healthy diet. Follow Up: With primary care physician in 1 week. Follow up with local orthopedic surgeon in [place] in 2 weeks for repeat chest x-ray and evaluation for cast placement and possible surgery. Return to ER for worsening condition. Medications: As per medication reconciliation list. Physical Examination: General: Awake, alert, oriented, in some mild distress due to pain. Elderly female, morbidly obese. CVS: S1, S2. No murmurs. Respiratory: Moving air well bilaterally. No wheezing. Gastrointestinal: Abdomen is soft, nontender, nondistended. Positive bowel sounds. Extremities: No clubbing, cyanosis, edema. Neurologic: Nonfocal. Musculoskeletal: Right upper extremity and right lower extremity in a splints. Total time spent discharging the patient was 35 minutes. VERO Voice ID: [id number] Report ID: [id number]
== END 2018-07-15 13:46 | DRG 563 ==
LOC: ER 12:42 → ERHOLD 16:03 → OBSVTOIN 16:03 → 2ND 16:50
PROVIDERS: ADMIT Family Medicine; ATTEND Family Medicine
PROC: 2W3CX1Z Immobilization of Right Lower Arm using Splint (ICD-10-PCS; principal; 2018-07-11)
PROC: 2W3QX1Z Immobilization of Right Lower Leg using Splint (ICD-10-PCS; 2018-07-11)
DX: S52.501A Unspecified fracture of the lower end of right radius, initial encounter for closed fracture (principal); Z68.41 Body mass index [BMI] 40.0-44.9, adult; S82.401A Unspecified fracture of shaft of right fibula, initial encounter for closed fracture; W18.30XA Fall on same level, unspecified, initial encounter; Y92.832 Beach as the place of occurrence of the external cause; K21.9 Gastro-esophageal reflux disease without esophagitis; E66.01 Morbid (severe) obesity due to excess calories
CPT/HCPCS: 36415; 73700; 80048; 80053; 83735; 84100; 85025; 85610; 85730; 86850; 86900; 86901; 93005; 96374; 96375; 97163; 99285; J1170; J1650; J2405; J2543; J2550; J3010; J7030